=== PATIENT | female | born 1980 | race Asian ===

== ENCOUNTER 2017-06-15 13:02 | Emergency (ER) | payer SELFPAY ==
[~2017-06-15] VITALS: Wt 64.9 kg
[~2017-06-15 13:02] MED LIST: AZIT250T94 PO; BENZ100C70 PO
[2017-06-15] MEDS ORDERED: KETOROLAC 60 MG INJ IM STA (14:51)
[2017-06-15] MEDS ORDERED: ONDANSETRON (ODT) 4 MG TAB ODT STA (14:51)
[2017-06-15] MEDS ORDERED: ACETAMINOPHEN 325 MG TAB PO ONE (15:00)
--- NOTE | 2017-06-15 15:35 | RADRPT ---
PROCEDURE: XR Chest. CLINICAL INDICATION: Cough TECHNIQUE: AP Portable chest. COMPARISON: None available FINDINGS: The soft tissues and bones are normal. No focal infiltrates, masses, or effusions are noted. The m ediastinum and heart are normal. No pneumothorax is present. IMPRESSION: 1. No radiographic evidence for acute cardiopulmonary disease RPTAT: [facility] .Ignacia Powell MD, Date Time Electronically viewed and signed by .Ignacia Powell MD, on 06/15/2017 15:34 .C/
[2017-06-15] MEDS ORDERED: BENZ100C70 PO (17:27)
[2017-06-15] MEDS ORDERED: IBUP-1542 PO (17:27)
[2017-06-15 17:44] VITALS: BP 134/87; PULSE 84; RESP 18; TEMP 99.3
--- NOTE | 2017-06-15 23:26 | ERD ---
ER Documentation Chief Complaint Chief Complaint COUGH, CHEST WALL PAIN, EAR PAIN, ONSET 3 DAYS HPI 36-year-old female patient with a past medical history of hypertension presents to the ED complaining of a dry cough that she has had for the past 4 days as well as left-sided chest pain. Reports that she feels like her chest is tight and congested. Rates her pain a 7 out of 10. Denies any wheezing, shortness of breath, vomiting, diarrhea, abdominal pain, neck stiffness, blurred vision, slurred speech, weakness, eye pain. Denies any sick contacts. Denies any recent traveling. Denies taking any control. Denies any smoking, alcohol use, drug use. Denies any leg swelling. Denies any recent surgeries. Denies any history of cardiopulmonary disease or family history of cardiopulmonary diseases. ROS All systems reviewed and are negative except as per history of present illness. Medications Home Meds Active Scripts Ibuprofen* (Motrin*) 600 Mg Tab, 600 MG PO Q6, #30 TAB Prov:MARIA ESTHER PALOMO PA-C 06/15/17 Benzonatate* (Tessalon Perle*) 100 Mg Capsule, 100 MG PO Q8H Y for COUGH, #20 CAP Prov:MARIA ESTHER PALOMO PA-C 06/15/17 Benzonatate* (Tessalon Perle*) 100 Mg Capsule, 100 MG PO Q8H Y for COUGH, #30 CAP Prov:SARIAH BARKER MD 07/01/16 Azithromycin* (Zithromax*) 250 Mg Tablet, 250 MG PO DAILY for 4 Days, TAB Prov:SARIAH BARKER MD 07/01/16 Allergies Allergies: Coded Allergies: No Known Drug Allergies (Verified Allergy, Unknown, 06/15/17) PMhx/Soc Medical and Surgical Hx: pt denies Medical Hx, pt denies Surgical Hx Hx Alcohol Use: No Hx Substance Use: No Hx Tobacco Use: No Smoking Status: Never smoker Physical Exam Vitals Vital Signs Date Time Temp Pulse Resp B/P Pulse Ox O2 Delivery O2 Flow Rate FiO2 06/15/17 17:44 99.3 84 18 134/87 97 Room Air 06/15/17 13:06 100.4 101 18 141/97 96 Physical Exam Const: Ppd-zaw-[id number], well-nourished. In no acute distress. Head: Atraumatic, normocephalic Eyes: Normal Conjunctiva without injection. No purulent discharge. PERRL. EOMI ENT: Normal external ear. Ear canal without erythema. Tympanic membrane pearly gilman without effusion or bulging. Nasal canal clear with normal turbinates. Moist oropharynx without tonsillar exudates. Non-erythematous pharynx. Uvula midline. No drooling. No trismus. Neck: Full range of motion. No meningismus. No cervical lymphadenopathy. Resp: Clear to auscultation bilaterally. No wheezing, rhonchi, rales, or crackles. No accessory muscle use. No retractions. Cardio: Regular rate and rhythm. No murmurs, rubs or gallops. Chest: Tenderness to palpation of left side of chest. Pain is reproducible. Abd: Soft, non tender, non distended. Normal bowel sounds. No palpable masses. No rebound tenderness. No guarding. Skin: No petechiae or rashes Back: No midline tenderness. No CVA tenderness. Ext: No cyanosis, or edema. Neur: Awake and alert. Psych: Normal Mood and Affect Results 24 hrs Current Medications Medications (Trade) Dose Ordered Sig/Teo Route PRN Reason Start Time Stop Time Status Last Admin Dose Admin Ketorolac Tromethamine (Toradol) 60 mg ONCE STAT IM 06/15/17 14:51 06/15/17 14:55 DC 06/15/17 16:09 Ondansetron HCl (Zofran Odt) 4 mg ONCE STAT ODT 06/15/17 14:51 06/15/17 14:55 DC 06/15/17 16:09 Acetaminophen (Tylenol Tab) 650 mg ONCE ONCE PO 06/15/17 15:00 06/15/17 15:01 DC 06/15/17 16:09 Procedures/MDM This is a 36-year-old female patient with past medical history of hypertension presents to the ED complaining of cough, left-sided chest pain, ear pain that started intermittently for the past 4 days. Patient has a low-grade fever of 100.4. Tylenol, Toradol, Zofran is ordered to further treat patient. Chest x- ray, EKG, Influenza was ordered to further evaluate patient. EKG reviewed and interpreted by Dr. Gonzalez Rate/Rhythm: [91 bpm, Normal Sinus Rhythm] No ectopy, no ST elevations, normal axis. QRS, ST, T-waves: [No changes consistent w/ acute ischemia] Impression: [No evidence of ischemia or arrhythmia] PROCEDURE: XR Chest. CLINICAL INDICATION: Cough TECHNIQUE: AP Portable chest. COMPARISON: None available FINDINGS: The soft tissues and bones are normal. No focal infiltrates, masses, or effusions are noted. The mediastinum and heart are normal. No pneumothorax is present. IMPRESSION: 1. No radiographic evidence for acute cardiopulmonary disease This patient presents to the ED with symptoms consistent with a viral acute upper respiratory infection and chest wall pain. Patient is afebrile and has normal vital signs. Patient's physical exam include lungs which were clear to auscultation and a normal pulse oximetry. There is a low suspicion for pneumonia , pneumothorax, mononucleosis, pericarditis, myocarditis, endocarditis, pulmonary embolism, epiglottitis, otitis media, otitis externa, viral/strep pharyngitis, sinusitis, peritonsillar abscess, mastoiditis, retropharyngeal abscess, meningitis, sepsis, acute abdomen or other emergent conditions. Low suspicion for acute myocardial infarction, pneumothorax, pneumonia, cardiac tamponade, Lgiah-Qvrlaatps-Wecbv Syndrome, Brugada Syndrome, pulmonary embolism , AAA, aortic dissection, thoracic aortic dissection, endocarditis, pericarditis , cocaine-related ischemia, Boerhaave's syndrome, cardiac dysrhythmias, meningitis, intracranial bleed, seizure, stroke, TIA or other emergent conditions. Fluids, rest, and symptomatic treatment are recommended for the management of patient's symptoms. This case was discussed with my supervising physician, Dr. Mccurdy who agreed with the management and discharge plan. Discharge medications: Tessalon Perles, Ibuprofen Follow up with primary care physician in 1-2 days. Instructed patient to return to the ED sooner for any worsening symptoms. Patient's questions were answered. Patient understood and agreed with discharge plan. Patient discharged stable. Departure Diagnosis: Primary Impression: Cough Additional Impressions: Fever Fever type: unspecified Qualified Code: R50.9 - Fever, unspecified fever cause Influenza-like symptoms Condition: Stable Patient Instructions: Costochondritis, Uri, Viral, No Abx (Adult) Referrals: COMM[facility]ITY CL[facility] YOU HAVE RECEIVED A MEDICAL SCREENING EXAM AND THE RESULTS INDICATE THAT YOU DO NOT HAVE A CONDITION THAT REQUIRES URGENT TREATMENT IN THE EMERGENCY DEPARTMENT. FURTHER EVALUATION AND TREATMENT OF YOUR CONDITION CAN WAIT UNTIL YOU ARE SEEN IN YOUR DOCTORS OFFICE WITHIN THE NEXT 1-2 DAYS. IT IS YOUR RESPONSIBILITY TO MAKE AN APPOINTMENT FOR FOLOW-UP CARE. IF YOU HAVE A PRIMARY DOCTOR --you should call your primary doctor and schedule an appointment IF YOU DO NOT HAVE A PRIMARY DOCTOR YOU CAN CALL OUR PHYSICIAN REFERRAL HOTLINE AT IF YOU CAN NOT AFFORD TO SEE A PHYSICIAN YOU CAN CHOSE FROM THE FOLLOW[facility] [address] [facility] [address] [facility] [address] [facility] [address] [facility] [address] [facility] [address] [facility]. [facility] YOU HAVE RECEIVED A MEDICAL SCREENING EXAM AND THE RESULTS INDICATE THAT YOU DO NOT HAVE A CONDITION THAT REQUIRES URGENT TREATMENT IN THE EMERGENCY DEPARTMENT. FURTHER EVALUATION AND TREATMENT OF YOUR CONDITION CAN WAIT UNTIL YOU ARE SEEN IN YOUR DOCTORS OFFICE WITHIN THE NEXT 1-2 DAYS. IT IS YOUR RESPONSIBILITY TO MAKE AN APPOINTMENT FOR FOLOW-UP CARE. IF YOU HAVE A PRIMARY DOCTOR --you should call your primary doctor and schedule and appointment IF YOU DO NOT HAVE A PRIMARY DOCTOR YOU CAN CALL OUR PHYSICIAN REFERRAL HOTLINE AT . IF YOU CAN NOT AFFORD TO SEE A PHYSICIAN YOU CAN CHOSE FROM THE FOLLOWING [facility] INSTITUTIONS: [facility] [address] [place] [address] [facility] [address] [place] [address] [facility] [address] [place] [address] [facility] Additional Instructions: Call your primary care doctor TOMORROW for an appointment during the next 2-3 days.See the doctor sooner or return here if your condition worsens before your appointment time. MARIA ESTHER PALOMO PA-C Jun 15, 2017 23:26
== END 2017-06-15 17:45 | disposition home or self-care (01) ==
LOC: FTE 13:02
DX: R05 Cough (principal); R50.9 Fever, unspecified; I10 Essential (primary) hypertension
CPT/HCPCS: 71010; 87400; 93005; 96372; 99285; J1885